=== PATIENT | male | born 2000 | race Caucasian/White ===

== ENCOUNTER 2021-08-25 17:04 | Emergency (ER) | payer OTHER ==
[~2021-08-25] VITALS: Ht 170.2 cm; Wt 69.1 kg
[2021-08-25 18:31] LABS: COVID AG,FIA SOURCE NASOPHARYNGEAL
[2021-08-25 19:06] VITALS: BP 131/68
== END 2021-08-25 19:06 | disposition home or self-care (01) ==
LOC: EMS 17:12
DX: R68.83 Chills (without fever) (principal); Z20.822 Contact with and (suspected) exposure to COVID-19
CPT/HCPCS: 87426; 99283; U0003; 99282